=== PATIENT | male | born 1980 | race Caucasian/White ===

== ENCOUNTER → 2017-04-25 | Outpatient (CLI) | payer OTHER ==
[~2017-04-25] MED LIST: CIPRO 500MG TA500 MG PO; FLEXERIL 1010 MG/TAB PO; NORCO 325 MG-51 TAB PO; ZOFRAN 4MG T4 MG/TAB PO
== END ==
LOC: COL.RAD 12:47
DX: R10.32 Left lower quadrant pain (principal)
CPT/HCPCS: Q9967

== ENCOUNTER → 2017-07-02 | Outpatient (CLI) | payer OTHER | LOC: COL.RAD 10:03 | DX: R10.31 Right lower quadrant pain (principal) | CPT/HCPCS: Q9967 ==